=== PATIENT | male | born 1975 | race Caucasian/White ===

== ENCOUNTER → 2017-07-15 09:15 | Outpatient (CLI) | payer BC, OTHER, MEDICAID, SELFPAY ==
--- NOTE | 2017-07-15 | DI.CT.S_ITS ---
PROCEDURE: CT CHEST WO CON INDICATIONS: SOLITARY PULMONARY NODULE TECHNIQUE: Noncontrast 5 mm thick sections acquired from the pulmonary apices to the posterior costophrenic angles. 7 mm thick coronal and sagittal MIP reformats were then acquired. For radiation dose reduction, the following was used: automated exposure control, adjustment of mA and/or kV according to patient size. COMPARISON: [facility], CT, ABDOMEN/PELVIS WITH CONTRAST, 05/30/2015, 8:40. FINDINGS: Image quality: Excellent. Lungs and pleura: There is again seen a right lower lobe pulmonary soft tissue nodule that today measures 6 mm in greatest axial dimension, as on series 3 image 36. This is not significantly changed compared to the prior CT dated 05/30/15. No new pulmonary nodules can be seen. No areas of acute lung consolidation are seen. No pneumothorax or pleural effusions are seen. The central airways are patent. Mediastinum: Heart size is normal. No pericardial effusion. No mediastinal adenopathy by size criteria. Thoracic aorta and central pulmonary arteries are normal in size. Incidental note is made of an aberrant right subclavian artery, which passes posterior to the esophagus and anterior to the vertebral bodies. Esophagus is normal in caliber. No hiatal hernia. Bones and chest wall: No suspicious bony lesions. No vertebral body compression fractures. No axillary or supraclavicular adenopathy by size criteria. Thyroid gland demonstrates no significant noncontrast abnormality. Abdomen: Visualized upper abdominal solid organs and bowel loops appear normal in the absence of contrast. IMPRESSION: Stable 6 mm right lower lobe pulmonary nodule. Given the stability since 2016, this is considered to be benign. No further imaging workup is recommended, although attention should be paid to this nodule on any future followup studies. Incidental note is made of: Aberrant right subclavian artery. Dictated by: Robby Caldera M.D. on 07/15/2017 at 8:59 Approved by: Robby Caldera M.D. on 07/15/2017 at 9:03
[2017-07-15 11:34] LABS: Alanine Aminotransferase 165 IU/L (21-72); Albumin 4.7 g/dL (3.5-5.0); Albumin Globulin Ratio 1.4 (1.0-2.8); Alkaline Phosphatase 114 U/L (38-126); Aspartate Aminotransferase 159 IU/L (17-59); BUN Creatinine Ratio 7.5 (6-22); Bilirubin Total 1.8 mg/dL (0.2-1.3); Calcium 9.4 mg/dL (8.4-10.2); Estimated Glomerular Filt Rate > 60.0 mL/min (>60); Gamma Glutamyl Transpeptidase 1101 U/L (15-73); Globulin 3.4 g/dL (1.7-4.1); Glucose 117 mg/dL (70-100); HDL Cholesterol 61 mg/dL (40-60); Potassium 3.2 mmol/L (3.4-5.1); Sodium 138 mmol/L (137-145); Total Protein 8.1 g/dL (6.3-8.2); Triglycerides 435 mg/dL (35-150)
[2017-07-15 11:39] LABS: HEMOLYSIS 19 (0-50)
[2017-07-15 12:09] LABS: Cholesterol 393 mg/dL (140-199)
[2017-07-15 12:58] LABS: TSH w/ Reflex to FT4 4.15 uIU/mL (0.47-4.68)
== END ==
PROVIDERS: PCP Family Medicine; Visit Provider Family Medicine
DX: R91.1 Solitary pulmonary nodule (principal); E78.5 Hyperlipidemia, unspecified; I10 Essential (primary) hypertension; E03.9 Hypothyroidism, unspecified; E87.1 Hypo-osmolality and hyponatremia; R79.89 Other specified abnormal findings of blood chemistry
CPT/HCPCS: 36415; 71250; 80053; 80061; 82977; 84443

== ENCOUNTER → 2017-08-17 09:30 | Outpatient (CLI) | payer BC, OTHER, MEDICAID, SELFPAY ==
--- NOTE | 2017-08-17 09:33 | DI.US.S_ITS ---
PROCEDURE: US ABDOMEN COMPLETE INDICATIONS: elevated liver function TECHNIQUE: Real-time scanning was performed of the abdominal and retroperitoneal organs, with image documentation. COMPARISON: [facility], US, ABDOMEN COMPLETE, 12/02/2016, 8:02. [facility], CT, ABDOMEN/PELVIS WITH CONTRAST, 05/30/2015, 8:40. FINDINGS: Liver: The liver is normal in size and demonstrates slightly increased echogenicity. This appearance is less prominent on the current study, compared to the previous study. No focal liver lesions are evident. Gallbladder: The gallbladder is within normal limits. There is no cholelithiasis. Biliary ducts: Intrahepatic bile ducts are non-dilated. Extrahepatic bile duct caliber measures 6 mm. Normal is 6-7 mm or less in diameter, or 10 mm or less post-cholecystectomy. Pancreas: Visualized portions of the pancreas are sonographically normal. Spleen: Spleen is normal in size and homogeneous in echotexture. Kidneys: Kidneys are normal in size and echotexture. Right kidney measures 10.3 cm long; left kidney measures 12.1 cm long. No hydronephrosis or shadowing nephrolithiasis. No solid masses. Aorta: Visualized aorta is normal in caliber at less than 3 cm. Iliacs: Proximal common iliac arteries are normal in caliber at less than 2.5 cm. IVC: Intrahepatic inferior vena cava is patent. Miscellaneous: No free abdominal fluid. IMPRESSION: 1. No cholelithiasis or evidence of acute cholecystitis. 2. Nonspecific increased echogenicity of the liver is most often seen in the setting of hepatic steatosis. This appearance is less prominent on the current study, compared to the previous exam. Dictated by: Dom Cadena M.D. on 08/17/2017 at 9:23 Approved by: Dom Cadena M.D. on 08/17/2017 at 9:38
== END ==
PROVIDERS: PCP Family Medicine; Visit Provider Family Medicine
DX: R79.89 Other specified abnormal findings of blood chemistry (principal)
CPT/HCPCS: 76700

== ENCOUNTER → 2020-01-03 07:14 | Outpatient (CLI) | payer BC, SELFPAY ==
[2020-01-03 08:50] LABS: Add Manual Diff / Slide Review NO; Basophils Absolute Auto 0 /uL (0-100); Basophils Percent Auto 0.4 % (0-2); Eosinophils Absolute Auto 0 /uL (0-450); Eosinophils Percent Auto 0.8 % (2-4); Hematocrit 46.2 % (41-53); Lymphocytes Absolute Auto 1400 /uL (1100-4500); Mean Corpuscular HGB Conc 34.7 % (30-36); Mean Corpuscular Hemoglobin 33.8 PG (26-34); Mean Corpuscular Volume 97.7 fL (80-100); Monocytes Absolute Auto 600 /uL (0-900); Monocytes Percent Auto 11.8 % (3-14); Neutrophils Absolute Auto 3300 /uL (1500-7000); Platelet Count 154 X10^3/uL (150-400); Red Blood Cell Count 4.73 X10^6/uL (4.5-5.9); Red Cell Distribution Width 13.4 % (11.6-14.8); White Blood Cell Count 5.4 X10^3/uL (4.5-11.0)
[2020-01-03 09:28] LABS: Alanine Aminotransferase 69 IU/L (<50); Albumin 4.7 g/dL (3.5-5.0); Albumin Globulin Ratio 1.3 (1.0-2.8); Alkaline Phosphatase 70 U/L (38-126); Aspartate Aminotransferase 72 IU/L (17-59); BUN Creatinine Ratio 13.8 (6-22); Bilirubin Total 1.7 mg/dL (0.2-1.3); Blood Urea Nitrogen 8 mg/dL (9-20); Calcium 9.4 mg/dL (8.4-10.2); Carbon Dioxide 30 mmol/L (22-32); Chloride 99 mmol/L (98-107); Estimated Glomerular Filt Rate > 60.0 mL/min (>60); Globulin 3.6 g/dL (1.7-4.1); Glucose 97 mg/dL (70-100); HDL Cholesterol 59 mg/dL (40-60); HEMOLYSIS < 15 (0-50); Potassium 3.4 mmol/L (3.4-5.1); Sodium 136 mmol/L (137-145); Total Protein 8.3 g/dL (6.3-8.2); Triglycerides 185 mg/dL (35-150)
[2020-01-03 09:42] LABS: Cholesterol 346 mg/dL (140-199); LDL Cholesterol Calculated 250 mg/dL (<100)
[2020-01-03 17:16] LABS: Creatinine Urine Random 175.5 mg/dL
[2020-01-03 17:20] LABS: Microalbumi Creatinin Ratio Ur 4.5 ug/mg CR (<30); Microalbumin Urine Random 0.8 mg/dL (0-1.6)
== END ==
PROVIDERS: PCP Family Medicine; Referring Provider Family Medicine; Visit Provider Family Medicine
DX: E03.9 Hypothyroidism, unspecified (principal); E78.1 Pure hyperglyceridemia; E78.5 Hyperlipidemia, unspecified; I10 Essential (primary) hypertension; R79.89 Other specified abnormal findings of blood chemistry
CPT/HCPCS: 36415; 80053; 80061; 82043; 82570; 85025

== ENCOUNTER → 2020-01-04 15:43 | Outpatient (CLI) | payer BC, SELFPAY ==
[2020-01-04 17:27] LABS: TSH w/ Reflex to FT4 5.91 uIU/mL (0.47-4.68)
[2020-01-04 17:53] LABS: Free T4, Direct Thyroxine 1.15 ng/dL (0.78-2.19)
== END ==
PROVIDERS: PCP Family Medicine; Visit Provider Family Medicine
DX: E03.9 Hypothyroidism, unspecified (principal)
CPT/HCPCS: 84439; 84443

== ENCOUNTER → 2020-06-19 09:46 | Outpatient (CLI) | payer OTHER, SELFPAY ==
[2020-06-19] MEDS: COVID-19 VACC, Ad26(JANSSEN)/PF 0.5 ML IM (09:56)
== END ==
PROVIDERS: PCP Family Medicine; Visit Provider Internal Medicine
DX: Z23 Encounter for immunization (principal)
CPT/HCPCS: 0031A; 91303

== ENCOUNTER 2020-07-23 14:23 | Emergency (ER) | payer OTHER, MEDICAID, SELFPAY ==
[2020-07-23] VITALS (10 sets, daily range): BP systolic 125–163; BP diastolic 77–104; PULSE 109–144; RESP 12–32; TEMP 36.8; O2SAT 94–99
--- NOTE | 2020-07-23 14:33 | DI.RAD.S_ITS ---
PROCEDURE: XR KNEE LT 3V INDICATIONS: PAIN, SWELLING AND BRUISING STATUS POST FALL TECHNIQUE: 3 views of the knee were acquired. COMPARISON: None. FINDINGS: Bones: No fractures or dislocations. No suspicious bony lesions. Soft tissues: No joint effusion. Subcutaneous soft tissue thickening from the infrapatellar region through the anterior tibial tubercle. No radiodense foreign body. No suspicious soft tissue calcifications. IMPRESSION: Subcutaneous soft tissue swelling in the infrapatellar region anteriorly suggests contusion or cellulitis without underlying fracture or foreign body. Dictated by: Jennifer Rodríguez M.D. on 07/23/2020 at 15:33 Approved by: Jennifer Rodríguez M.D. on 07/23/2020 at 15:35
[2020-07-23] MEDS: SODIUM CHLORIDE 0.9% 1,000 ML 1000 ML IV (14:58)
[2020-07-23] MEDS: TET,DIPH,PERTUSS(ACELL),VAC/PF 0.5 ML SYRINGE IM (14:59)
[2020-07-23] MEDS: THIAMINE 200 MG in SODIUM CHLORIDE 0.9% 50 ML 208 ML IV (14:59)
[2020-07-23 15:00] LABS: Add Manual Diff / Slide Review NO; Basophils Absolute Auto 0 /uL (0-100); Basophils Percent Auto 0.2 % (0-2); Eosinophils Absolute Auto 0 /uL (0-450); Hematocrit 41.1 % (41-53); Hemoglobin 14.3 g/dL (13.5-17.5); Lymphocytes Absolute Auto 900 /uL (1100-4500); Lymphocytes Percent Auto 8.1 % (25-40); Mean Corpuscular HGB Conc 34.9 % (30-36); Mean Corpuscular Hemoglobin 33.7 PG (26-34); Mean Corpuscular Volume 96.7 fL (80-100); Monocytes Absolute Auto 900 /uL (0-900); Monocytes Percent Auto 7.4 % (3-14); Neutrophils Absolute Auto 9700 /uL (1500-7000); Neutrophils Percent Auto 84.3 % (50-75); Platelet Count 82 X10^3/uL (150-400); Red Blood Cell Count 4.25 X10^6/uL (4.5-5.9); Red Cell Distribution Width 14.5 % (11.6-14.8); White Blood Cell Count 11.6 X10^3/uL (4.5-11.0)
[2020-07-23] MEDS: ONDANSETRON 4 MG/2 ML INJ IV (15:00)
[2020-07-23] MEDS: PHENobarbital 65 MG/ML VIAL 260 MG IV (15:01)
[2020-07-23 15:21] LABS: Alanine Aminotransferase 53 IU/L (<50); Albumin Globulin Ratio 1.5 (1.0-2.8); Alkaline Phosphatase 97 U/L (38-126); Aspartate Aminotransferase 104 IU/L (17-59); BUN Creatinine Ratio 11.7 (6-22); Bilirubin Total 1.9 mg/dL (0.2-1.3); Blood Urea Nitrogen 11 mg/dL (9-20); Calcium 10.4 mg/dL (8.4-10.2); Carbon Dioxide 23 mmol/L (22-32); Chloride 93 mmol/L (98-107); Creatine Kinase 93 U/L (55-170); Estimated Glomerular Filt Rate > 60.0 mL/min (>60); Globulin 3.3 g/dL (1.7-4.1); Glucose 135 mg/dL (70-100); HEMOLYSIS < 15 (0-50); Potassium 2.8 mmol/L (3.4-5.1); Sodium 133 mmol/L (137-145); Total Protein 8.3 g/dL (6.3-8.2)
[2020-07-23 15:31] LABS: NT-proBNP (BNP-Adult 18+) 217 pg/mL (<125)
[2020-07-23] MEDS: MAGNESIUM SULFATE 2 GM/50 ML PIGGYBACK IV (16:22)
[2020-07-23] MEDS: POTASSIUM CHLORIDE IN WATER 10 MEQ/100 ML PIGGYBACK 100 MEQ IV (16:49)
--- NOTE | 2020-07-23 19:01 | ED_ITS ---
HPI - Alcohol General Chief Complaint: Toxicology Problem Stated Complaint: knees scrapped and injured Time Seen by Provider: 07/23/20 14:25 Source: patient Mode of arrival: Wheelchair Limitations: no limitations History of Present Illness HPI narrative: A 44-year-old male nonsmoker and heavy drinker presents with his for evaluation of a ground level fall with abrasions of his anterior knees. He presents in a wheelchair in complains that he has actually fallen 3 times today and when asked further he states because his legs do not seem to work and he is unsteady. He denies any head neck or back pain. He denies other injuries other than his knees as a consequence of the fall. It turns out the patient normally drinks at least 5 glasses of wine per day and decided to quit cold turkey 2 days ago. He has never gone through alcohol withdrawal before and has never had seizures. He denies any history of rehab. He has had no fever or chills. Denies any numbness, tingling or weakness. He has a mild headache and feels a bit anxious. He denies any chest pain but does have a racing heart. He is a bit sweaty. He denies any auditory or visual hallucinations. He denies any tactile hallucinations. He is nauseated but denies any vomiting and states he actually just has a poor appetite MD complaint: alcohol withdrawal Last drink: days (ago) Chronic alcohol use: Yes Previous visits for alcohol intoxication: No Recent trauma: Yes Treatments prior to arrival: none Related Data Previous Rx's Medication Instructions Recorded chlordiazepoxide HCl 25 mg PO Q12H #32 cap 07/23/20 potassium chloride 20 meq PO BID #14 tab 07/23/20 Allergies Allergy/AdvReac Type Severity Reaction Status Date / Time No Known Drug Allergies Allergy Verified 07/23/20 14:40 Review of Systems Constitutional Constitutional: Denies chills, Denies fatigue, Denies fever(s), Denies frequent falls, Denies lethargy and Denies weakness Eyes Eyes: Denies change in vision, Denies eye discharge, Denies irritation and Denies loss of vision ENT Ears, Nose, Mouth, and Throat: Denies change in voice, Denies dizziness, Denies neck pain, Denies sore throat and Denies throat swelling Cardiovascular Cardiovascular: Denies chest pain, Reports irregular heart rhythm, Denies lightheadedness, Reports palpitations, Denies dyspnea, Denies dyspnea on exertion and Denies orthopnea Respiratory Respiratory: Denies cough, Denies dyspnea, Denies dyspnea on exertion and Denies wheezing Gastrointestinal Gastrointestinal: Denies abdominal pain, Denies change in bowel habits, Denies diarrhea, Denies nausea and Denies vomiting Musculoskeletal Musculoskeletal: Reports joint swelling, Reports limited range of motion, Denies neck pain and Denies numbness Integumentary/Breasts Skin/Breast: Denies pruritus, Reports erythema, Denies rash, Reports skin pain, Reports skin swelling and Reports wounds Neurologic Neurologic: Denies behavioral changes, Denies confusion, Denies dizziness, Denies frequent falls, Denies loss of vision, Denies numbness and Denies weakne ss Psychiatric Psychiatric: Reports anxiety, Denies behavioral changes, Denies confusion, Denies depression, Denies homicidal ideation and Denies suicidal ideation Endocrine Endocrine: Denies fatigue, Denies flushing and Reports palpitations Hematologic/Lymphatic Hematologic/Lymphatic: Denies easy bruising Allergic/Immunologic Allergic/Immunologic: Denies urticaria, Denies throat swelling and Denies wheezing Patient History Social History Smoking Status: Never smoker Smoking Status: Never smoker alcohol intake frequency: 3 or more drinks per day Substance Use Type: does not use Exam Narrative Exam Narrative: GENERAL: [44] year old patient appears stated age. Thin, in distress, mild resting tremors, diaphoresis and some agitation HEAD: Atraumatic. Normocephalic. EYES: Pupils equal round and reactive. Extraocular motions intact. No scleral icterus. No injection or drainage. ENT: Nose without bleeding, purulent drainage. Throat without erythema, tonsillar hypertrophy or exudate. Airway patent. NECK: Trachea midline. Non tender CARDIOVASCULAR: Tachycardic but regular rhythm without murmurs, gallops, or rubs. RESPIRATORY: Clear to auscultation. Breath sounds equal bilaterally. No wheezes, rales, or rhonchi. GASTROINTESTINAL: Abdomen soft, non-tender, nondistended. EXTREMITIES: No edema or joint tenderness. BACK: Nontender without deformity or crepitance. No flank tenderness. NEURO: AOx3. Mild resting tremor with arms extended SKIN: No rash or erythema of visible areas mild diaphoresis Initial Vital Signs Initial Vital Signs: Vital Signs Temperature 98.3 F 07/23/20 14:37 Pulse Rate 144 H 07/23/20 14:37 Respiratory Rate 18 07/23/20 14:37 Blood Pressure 163/104 H 07/23/20 14:37 Pulse Oximetry 97 07/23/20 14:37 Course Course Course Narrative: Patient does demonstrate improvement after thiamine and phenobarb. Patient was flipped for admission early and had been visit at the bedside by the hospitalist as he is clearly at high risk for rapid deterioration and requires a monitored setting and replacement of electrolytes. Patient is admittedly terrified of hospitals and has had bad experiences and multiple occurrences in his life. He is of sound mind and judgment and demonstrates the capacity to make his own decisions. We have had lengthy discussions at the bedside with both myself and hospitalist about our desire to admit the patient, high likelihood of possible bad outcome ranging anywhere from seizures to permanent disability or even and cardiac arrest. The patient is apologetic about his decision but refuses to stay in the hospital. I did offer to speak with family members including his as well as his primary care provider and he would be happy with me to talk to anybody. His presents to the bedside and we have essentially the same lengthy conversation and it becomes clear that the patient will not come into the hospital. He states that he will come back if things get worse. Orders Ordered: ED Orders 07/23/20 14:33 XR knee LT 3V Stat EKG-12 Lead Stat 07/23/20 14:43 Complete Blood Count AUTO DIFF Stat Comprehensive Metabolic Panel Stat Magnesium Stat NT-proBNP (BNP-Adult 18+) Stat Troponin & CK Cardiac Panel Stat Discontinued Medications Diphtheria/Tetanus/Acell Pertussis (Tet,Diph,Pertuss(Acell),Vac/Pf 0.5 Ml Syringe) 0.5 ml IM .ONCE ONE Stop: 07/23/20 14:34 Last Admin: 07/23/20 14:59 Dose: 0.5 ml Documented by: ADRYAN Sodium Chloride (Normal Saline 0.9%) 1,000 mls @ 1,000 mls/hr IV BOLUS ONE Stop: 07/23/20 15:32 Last Infusion: 07/23/20 18:01 Dose: 0 mls/hr Documented by: Admin: 07/23/20 14:58 Dose: 1,000 mls/hr Documented by: ADRYAN Thiamine HCl 200 mg/ Sodium (Chloride) 52 mls @ 208 mls/hr IV NOW ONE Stop: 07/23/20 14:34 Last Infusion: 07/23/20 15:43 Dose: 0 mls/hr Documented by: Infusion: 07/23/20 15:29 Dose: 208 mls/hr Documented by: Infusion: 07/23/20 15:00 Dose: 0 mls/hr Documented by: Admin: 07/23/20 14:59 Dose: 208 mls/hr Documented by: ADRYAN Magnesium Sulfate (Magnesium Sulfate) 2 gm in 50 mls @ 150 mls/hr IV NOW ONE Stop: 07/23/20 16:33 Last Infusion: 07/23/20 16:51 Dose: 0 mls/hr Documented by: ADRYAN Cosigned by: MK Admin: 07/23/20 16:22 Dose: 150 mls/hr Documented by: ADRYAN Cosigned by: MK POTASSIUM CHLORIDE IN WATER (Potassium Cl 10 Meq/100 Ml Leigha) 10 meq in 100 mls @ 100 mls/hr IV Q1H MARKY Stop: 07/23/20 20:13 Last Admin: 07/23/20 18:02 Dose: Not Given Documented by: Admin: 07/23/20 18:02 Dose: Not Given Documented by: Infusion: 07/23/20 17:46 Dose: 0 mls/hr Documented by: Admin: 07/23/20 16:49 Dose: 100 mls/hr Documented by: ADRYAN Ondansetron HCl (Ondansetron 4 Mg/2 Ml Inj) 4 mg IV Q4HR PRN PRN Reason: Nausea And Vomiting Last Admin: 07/23/20 15:00 Dose: 4 mg Documented by: ADRYAN Phenobarbital (Phenobarbital 65 Mg/Ml Vial) 260 mg IV NOW ONE Stop: 07/23/20 14:34 Last Admin: 07/23/20 15:01 Dose: 260 mg Documented by: ADRYAN Vital Signs Vital signs: Vital Signs - 8 hr 07/23/20 14:37 07/23/20 14:45 07/23/20 14:48 Temperature 98.3 F Pulse Rate 144 H 129 H Respiratory Rate 18 17 Blood Pressure 163/104 H 162/77 H Pulse Oximetry 97 96 95 07/23/20 15:00 07/23/20 15:30 07/23/20 16:00 Temperature Pulse Rate 126 H 118 H 120 H Respiratory Rate 16 18 12 Blood Pressure 150/88 H 125/83 138/87 Pulse Oximetry 94 95 99 07/23/20 16:30 07/23/20 16:37 07/23/20 17:00 Temperature Pulse Rate 114 H 112 H 110 H Respiratory Rate 24 26 H 32 H Blood Pressure 136/89 136/89 131/92 H Pulse Oximetry 99 97 98 07/23/20 17:30 Temperature Pulse Rate 109 H Respiratory Rate 21 Blood Pressure 142/87 H Pulse Oximetry 98 MDM - Alcohol Lab Data Result diagrams: 07/23/20 14:43 07/23/20 14:43 Labs: Lab Results 07/23/20 07/23/20 Range/Units 14:43 14:43 WBC 11.6 H (4.5-11.0) X10^3/uL RBC 4.25 L (4.5-5.9) X10^6/uL Hgb 14.3 (13.5-17.5) g/dL Hct 41.1 (41-53) % MCV 96.7 (80-100) fL MCH 33.7 (26-34) PG MCHC 34.9 (30-36) % RDW 14.5 (11.6-14.8) % Plt Count 82 L (150-400) X10^3/uL Neut % (Auto) 84.3 H (50-75) % Lymph % (Auto) 8.1 L (25-40) % Pershing % (Auto) 7.4 (3-14) % Eos % (Auto) 0.0 L (2-4) % Baso % (Auto) 0.2 (0-2) % Neut # (Auto) 9700 H (4031-1902) /uL Lymph # (Auto) 900 L (2758-5214) /uL Pershing # (Auto) 900 (0-900) /uL Eos # (Auto) 0 (0-450) /uL Baso # (Auto) 0 (0-100) /uL Sodium 133 L (137-145) mmol/L Potassium 2.8 L (3.4-5.1) mmol/L Chloride 93 L (98-107) mmol/L Carbon Dioxide 23 (22-32) mmol/L BUN 11 (9-20) mg/dL Creatinine 0.94 (0.66-1.25) mg/dL Estimated GFR > 60.0 (>60) mL/min BUN/Creatinine Ratio 11.7 (6-22) Glucose 135 H (70-100) mg/dL Calcium 10.4 H (8.4-10.2) mg/dL Magnesium 1.0 L (1.6-2.3) mg/dL Total Bilirubin 1.9 H (0.2-1.3) mg/dL AST 104 H (17-59) IU/L ALT 53 H (<50) IU/L Alkaline Phosphatase 97 (38-126) U/L Total Creatine Kinase 93 (55-170) U/L CK-MB (CK-2) TNP CK-MB (CK-2) Rel Index TNP Troponin I 0.040 H (0.01-0.034) ng/mL NT-Pro-B Natriuret Pep 217 H (<125) pg/mL Total Protein 8.3 H (6.3-8.2) g/dL Albumin 5.0 (3.5-5.0) g/dL Globulin 3.3 (1.7-4.1) g/dL Albumin/Globulin Ratio 1.5 (1.0-2.8) Discharge Plan Departure Patient Disposition: Left Against Medical Advice Clinical Impression: Magnesium deficiency, Decreased potassium in the blood Alcohol withdrawal syndrome Qualifiers: Complication of substance-induced condition: with unspecified complication Qualified Code(s): F10.239 - Alcohol dependence with withdrawal, unspecified Instructions: DI for Drug or Alcohol Withdrawal Activity Restrictions/Additional Instructions: *You have been diagnosed with [acute alcohol withdrawal syndrome with associated electrolyte abnormalities including low potassium and magnesium. As we discussed each of these diagnoses are potentially a life-threatening and could lead to seizures, heart attacks, cardiac arrest and permanent disability. I have included prescriptions which will help you treat these diagnoses as an outpatient but please feel free to return immediately for any change of heart.] *What to do: *Please continue to take your regular medications as directed. Have included a prescription for potassium, however it can be foul tasting. It may be easier to consider eating a diet of foods high in potassium such as bananas, oranges, spinach, broccoli, potatoes, mushrooms and others. [x ] New medication prescriptions sent to your pharmacy: [[facility] ] [ ] New medication written as a paper prescription [ ] No new medications given *Please follow up with your primary care provider in 2-3 days, call for an appointment. Let them know you were seen in the Emergency Department and that we ask that you be seen in follow up. We will electronically transmit a record of today's note if your PCP is in our system *If you do not have a primary care provider please contact the [facility] Resource line at [phone]. They will ask some questions about your medical history and help get you set up with a doctor in the community. *Return to Emergency Department if you should have any new, worsening or concerning symptoms, such as [fever greater than 101 F, shaking chills, worsening pain, persistent vomiting or other bothersome symptoms] Prescriptions: New chlordiazepoxide HCl 25 mg capsule 25 mg PO Q12H Qty: 32 RF: 0 potassium chloride 20 mEq tablet extended release 20 meq PO BID Qty: 14 RF: 0 Stand Alone Forms: Against Medical Advice
== END 2020-07-23 18:00 | disposition left against medical advice (07) ==
PROVIDERS: Emergency Provider Emergency Medicine
DX: E87.6 Hypokalemia (principal); E61.2 Magnesium deficiency; F10.239 Alcohol dependence with withdrawal, unspecified; R00.2 Palpitations; F41.9 Anxiety disorder, unspecified; Z23 Encounter for immunization
CPT/HCPCS: 36415; 73562; 80053; 82550; 83735; 83880; 84484; 85025; 90471; 93005; 93010; 96361; 96365; 96375; 99284; 90715; J2405; J2560; J3475

== ENCOUNTER → 2020-09-22 13:12 | Outpatient (CLI) | payer OTHER, SELFPAY ==
[2020-09-22 13:57] LABS: Add Manual Diff / Slide Review NO; Basophils Absolute Auto 0 /uL (0-100); Basophils Percent Auto 0.5 % (0-2); Eosinophils Absolute Auto 0 /uL (0-450); Eosinophils Percent Auto 0.4 % (2-4); Hematocrit 48.6 % (41-53); Hemoglobin 16.8 g/dL (13.5-17.5); Lymphocytes Absolute Auto 1100 /uL (1100-4500); Lymphocytes Percent Auto 15.2 % (25-40); Mean Corpuscular HGB Conc 34.6 % (30-36); Mean Corpuscular Volume 95.4 fL (80-100); Monocytes Absolute Auto 500 /uL (0-900); Monocytes Percent Auto 7.5 % (3-14); Neutrophils Absolute Auto 5500 /uL (1500-7000); Neutrophils Percent Auto 76.4 % (50-75); Platelet Count 126 X10^3/uL (150-400); Red Blood Cell Count 5.09 X10^6/uL (4.5-5.9); Red Cell Distribution Width 13.2 % (11.6-14.8); White Blood Cell Count 7.2 X10^3/uL (4.5-11.0)
[2020-09-22 14:32] LABS: Alanine Aminotransferase 26 IU/L (<50); Albumin Globulin Ratio 1.3 (1.0-2.8); Alkaline Phosphatase 79 U/L (38-126); Aspartate Aminotransferase 50 IU/L (17-59); BUN Creatinine Ratio 16.1 (6-22); Bilirubin Total 2.7 mg/dL (0.2-1.3); Blood Urea Nitrogen 9 mg/dL (9-20); Calcium 10.3 mg/dL (8.4-10.2); Carbon Dioxide 26 mmol/L (22-32); Chloride 96 mmol/L (98-107); Cholesterol 267 mg/dL (140-199); Estimated Glomerular Filt Rate > 60.0 mL/min (>60); Gamma Glutamyl Transpeptidase 231 U/L (15-73); Globulin 3.8 g/dL (1.7-4.1); Glucose 118 mg/dL (70-100); HDL Cholesterol 73 mg/dL (40-60); HEMOLYSIS < 15 (0-50); LDL Cholesterol Calculated 138 mg/dL (<100); Potassium 3.5 mmol/L (3.4-5.1); Sodium 134 mmol/L (137-145); Total Protein 8.8 g/dL (6.3-8.2); Triglycerides 280 mg/dL (35-150)
[2020-09-22 14:59] LABS: TSH w/ Reflex to FT4 4.78 uIU/mL (0.47-4.68)
[2020-09-22 16:04] LABS: Free T4, Direct Thyroxine 0.91 ng/dL (0.78-2.19)
--- NOTE | 2020-09-22 16:24 | DI.RAD.S_ITS ---
PROCEDURE: XR WRIST LT MIN 3V INDICATIONS: left wrist worsening pain and swelling TECHNIQUE: 4 views of the wrist were acquired. COMPARISON: None. FINDINGS: Bones: No fractures or dislocations. No suspicious bony lesions. Scaphoid view: No fracture Soft tissues: No suspicious soft tissue calcifications. Normal degenerative in the wrist. No erosions or evidence of inflammatory arthropathy. IMPRESSION: 1. No acute abnormality of the left wrist. 2. Minimal degenerative changes. 3. No evidence of inflammatory arthropathy in the left wrist. Dictated by: Reno Johns M.D. on 09/22/2020 at 17:59 Approved by: Reno Johns M.D. on 09/22/2020 at 18:29
== END ==
PROVIDERS: PCP Family Medicine; Referring Provider Family Medicine; Visit Provider Family Medicine
DX: E03.9 Hypothyroidism, unspecified (principal); E78.1 Pure hyperglyceridemia; E78.5 Hyperlipidemia, unspecified; I10 Essential (primary) hypertension; K76.0 Fatty (change of) liver, not elsewhere classified; R79.89 Other specified abnormal findings of blood chemistry
CPT/HCPCS: 36415; 73110; 80053; 80061; 82977; 84439; 84443; 85025

== ENCOUNTER → 2020-12-08 07:54 | Outpatient (CLI) | payer OTHER, SELFPAY ==
[2020-12-08 08:55] LABS: Alanine Aminotransferase 43 IU/L (<50); Albumin 4.8 g/dL (3.5-5.0); Albumin Globulin Ratio 1.2 (1.0-2.8); Alkaline Phosphatase 73 U/L (38-126); Aspartate Aminotransferase 85 IU/L (17-59); BUN Creatinine Ratio 9.4 (6-22); Bilirubin Total 1.4 mg/dL (0.2-1.3); Blood Urea Nitrogen 5 mg/dL (9-20); Calcium 9.9 mg/dL (8.4-10.2); Carbon Dioxide 29 mmol/L (22-32); Chloride 101 mmol/L (98-107); Cholesterol 206 mg/dL (140-199); Estimated Glomerular Filt Rate > 60.0 mL/min (>60); Glucose 105 mg/dL (70-100); HDL Cholesterol 70 mg/dL (40-60); LDL Cholesterol Calculated 109 mg/dL (<100); Sodium 136 mmol/L (137-145); Total Protein 8.8 g/dL (6.3-8.2); Triglycerides 135 mg/dL (35-150)
[2020-12-08 09:00] LABS: HEMOLYSIS 88 (0-50); Potassium 5.5 mmol/L (3.4-5.1)
[2020-12-08 09:28] LABS: TSH w/ Reflex to FT4 3.44 uIU/mL (0.47-4.68)
== END ==
PROVIDERS: PCP Family Medicine; Referring Provider Family Medicine; Visit Provider Family Medicine
DX: E78.1 Pure hyperglyceridemia (principal); K76.0 Fatty (change of) liver, not elsewhere classified
CPT/HCPCS: 36415; 80053; 80061; 84443

== ENCOUNTER 2021-06-03 11:14 | Emergency (ER) | payer OTHER, SELFPAY ==
[2021-06-03] VITALS (11 sets, daily range): BP systolic 128–147; BP diastolic 79–102; PULSE 78–102; RESP 12–24; TEMP 36.3; O2SAT 96–99; BMI 22.7
--- NOTE | 2021-06-03 11:40 | DI.CT.S_ITS ---
PROCEDURE: CT HEAD/BRAIN WO CON INDICATIONS: Fall and intoxicated TECHNIQUE: Noncontrast 4.5 mm thick angled axial sections acquired from the foramen magnum to the vertex, with coronal and sagittal reformats. For radiation dose reduction, the following was used: automated exposure control, adjustment of mA and/or kV according to patient size. COMPARISON: None. FINDINGS: Image quality: Excellent. CSF spaces: Basal cisterns are patent. No extra-axial fluid collections. Ventricles are normal in size and shape. Brain: No midline shift. No intracranial masses or hemorrhage. Mcqueen-white matter interface is normal. Skull and face: Calvarium and visualized facial bones are intact, without suspicious lesions. Sinuses: Visualized sinuses and mastoids are clear. IMPRESSION: No acute intracranial hemorrhage is seen. No acute intracranial process is seen. Dictated by: Robby Caldera M.D. on 06/03/2021 at 10:55 Approved by: Robby Caldera M.D. on 06/03/2021 at 10:55
--- NOTE | 2021-06-03 11:42 | DI.CT.S_ITS ---
PROCEDURE: CT CERVICAL SPINE WO CON INDICATIONS: Fall and intoxicated TECHNIQUE: Noncontrast 3 mm thick sections acquired from the skull base to the T4 level. Sagittal and coronal reformats were then constructed. For radiation dose reduction, the following was used: automated exposure control, adjustment of mA and/or kV according to patient size. COMPARISON: [facility], CERVICAL SPINE 2 OR 3 VIEWS, 03/11/2017, 15:49. [facility], CT, CT HEAD/BRAIN WO CON, 06/03/2021, 11:45. FINDINGS: Image quality: Excellent. Bones: No fractures or dislocations. Fusion of C4-C5. Degenerative disc and facet disease in cervical spine. Visualized superior ribs are intact. Soft tissues: Prevertebral soft tissues are normal in thickness. No paravertebral hematomas. No apical pneumothoraces. IMPRESSION: No fracture in cervical spine. Dictated by: Katelyn Medina M.D. on 06/03/2021 at 12:04 Approved by: Katelyn Medina M.D. on 06/03/2021 at 12:15
--- NOTE | 2021-06-03 12:13 | ED_ITS ---
HPI - Fall <Rachael Roper [facility] - Last Filed: 06/03/21 13:55> General Chief Complaint: Fall Stated Complaint: GLF Time Seen by Provider: 06/03/21 11:39 Source: EMS Mode of arrival: EMS History of Present Illness HPI Narrative: [age] year old male presents to the emergency department by EMS after a ground level fall into a cabinet this morning. Patient's states that he has been drinking more than 1 bottle of wine each day for the last 6 days since his mother . Patient's states that he has had slurred speech, was unable to get up this morning, and he called EMS. Patient is alert and oriented to self, location, but not time. He denies seeking help for his drinking. Patient states he has been hospitalized for alcohol withdrawal in the past but denies ever having a seizure. Patient denies any pain currently, he denies any hallucinations-audio or visual, he denies any shortness of breath, chest pain, vomiting, neck pain, headache, nausea, or other complaint. Patient's states that patient had a loss of consciousness after he hit the cabinet for less than a minute but he continued breathing. This is why he called EMS. Patient has been acting like himself since he woke, but he has had slurred speech consistent with slurred speech over the last week. Patient states his last drink was last night. Patient endorses having chronic dental infection in his mouth. He has an appointment in 2 weeks to have his teeth removed. He states he drinks due to the pain in his mouth. His gums are red and painful, with obvious infection. Related Data Home Medications Medication Instructions Recorded Confirmed Fexofenadine Hydrochloride 0 mg PO * DOSE/FREQUENCY #0 12/01/09 12/08/20 (Melissa) triamcinolone acetonide 55 mcg 1 spray INTRANASAL DAILY 12/08/20 12/08/20 nasal spray aerosol (Nasacort) Previous Rx's Medication Instructions Recorded albuterol sulfate 90 mcg/actuation 2 puff INHALATION SEE INSTRUCTIONS 11/26/19 aerosol inhaler (Proventil HFA) PRN #1 inh atorvastatin 80 mg tablet 80 mg PO BEDTIME #90 tab 12/22/20 chlorhexidine gluconate 0.12 % 15 ml BUCCAL DAILY #118 ml 03/23/22 mouthwash clindamycin HCl 150 mg capsule 450 mg PO Q8H 7 Days #63 cap 06/03/21 Allergies Allergy/AdvReac Type Severity Reaction Status Date / Time No Known Drug Allergies Allergy Unverified 12/08/20 09:38 Review of Systems <EMETERIO Ivory - Last Filed: 06/03/21 13:55> Review of Systems Narrative: General: denies fever, chills, malaise, sweats, fatigue Head/Neck: denies headache, neck pain, dizziness Eyes: denies visual changes, eye pain Cardio: denies chest pain, palpitations, edema Respiratory: denies dyspnea, cough, orthopnea GI: denies abdominal pain, nausea, vomiting, or diarrhea : denies dysuria, hematuria, urinary retention, frequency or incontinence MSK: denies joint pain, muscle weakness Skin: denies rash, itching, skin lesions or other Neuro: denies numbness, tingling Patient History <EMETERIO Ivory - Last Filed: 06/03/21 13:55> Medical History Hepatic steatosis Hyperlipidemia Hypertension Impaired fasting glucose Incidental pulmonary nodule (10/15/16) Left wrist pain Surgical History History of tonsillectomy History of tympanostomy tube placement Status post biopsy (08/29/14) Family History Mother Fatty liver Social History Smoking Status: Never smoker Smoking Status: Never smoker alcohol intake frequency: 3 or more drinks per day Substance Use Type: does not use Exam <EMETERIO Ivory - Last Filed: 06/03/21 13:55> Narrative Exam Narrative: Independently reviewed vitals signs and nursing notes. General: cooperative, comfortable, in no acute distress, Head: atraumatic, symmetrical facial expressions Neck: supple, atraumatic, without lymphadenopathy. Eyes: pupils equal round and reactive, EOMI, conjunctiva normal Nose: nares patent, no rhinorrhea Mouth/Throat: uvula midline, moist mucus membranes Cardiovascular: regular rate and rhythm, no peripheral edema, warm extremities Respiratory: normal effort, able to speak in complete sentences, no audible wheezing, stridor, or rales. No retractions or tachypnea. GI: abdomen soft, nontender to palpation, nondistended, no masses, no exquisite tenderness with exam, without guarding or rebound. MSK: moves all extremities, ambulatory w/steady gait, neurovascularly intact, no weakness Skin: brisk capillary refill, no rash, no erythema Neuro: normal speech and cognition, A&O x3, normal tone Psych: mental status is grossly normal, congruent mood, normal affect, pleasant and cooperative Initial Vital Signs Initial Vital Signs: Vital Signs Temperature 97.4 F L 06/03/21 11:16 Pulse Rate 93 H 06/03/21 11:16 Respiratory Rate 18 06/03/21 11:16 Blood Pressure 147/102 H 06/03/21 11:16 <Jose Rafael Anthony DO - Last Filed: 06/03/21 15:52> Initial Vital Signs Initial Vital Signs: Vital Signs Temperature 97.4 F L 06/03/21 11:16 Pulse Rate 93 H 06/03/21 11:16 Respiratory Rate 18 06/03/21 11:16 Blood Pressure 147/102 H 06/03/21 11:16 Course <EMETERIO Ivory - Last Filed: 06/03/21 13:55> Orders Ordered: ED Orders 06/03/21 11:24 EKG-12 Lead Routine 06/03/21 11:34 CBC Auto Diff [Complete Blood Count AUTO DIFF] Stat CMP [Comprehensive Metabolic Panel] Stat Magnesium Stat Phosphorous Stat 06/03/21 11:40 CT head/brain wo con Stat 06/03/21 11:42 CT cervical spine wo con Stat Discontinued Medications Amoxicillin/Clavulanate Potassium (Amoxicillin/Clav 875/125 Mg) 1 tab PO NOW ONE Stop: 06/03/21 12:28 Last Admin: 06/03/21 12:50 Dose: Not Given Documented by: KISHOR Clindamycin HCl (Clindamycin 150 Mg Capsule) 300 mg PO NOW ONE Stop: 06/03/21 12:33 Last Admin: 06/03/21 12:50 Dose: Not Given Documented by: KISHOR Clindamycin HCl (Clindamycin 150 Mg Capsule) 450 mg PO NOW ONE Stop: 06/03/21 12:34 Last Admin: 06/03/21 12:36 Dose: 450 mg Documented by: KISHOR Sodium Chloride (Normal Saline 0.9%) 1,000 mls @ 1,000 mls/hr IV BOLUS ONE Stop: 06/03/21 13:10 Last Infusion: 06/03/21 13:18 Dose: 0 mls/hr Documented by: Admin: 06/03/21 12:17 Dose: 1,000 mls/hr Documented by: KISHOR Thiamine HCl 100 mg/ Sodium (Chloride) 101 mls @ 404 mls/hr IV NOW ONE Stop: 06/03/21 12:25 Last Infusion: 06/03/21 13:18 Dose: 0 mls/hr Documented by: Admin: 06/03/21 12:34 Dose: 404 mls/hr Documented by: KISHOR Lorazepam (Lorazepam 2 Mg/Ml Inj) 1 mg IV NOW ONE Stop: 06/03/21 12:25 Last Admin: 06/03/21 12:33 Dose: 0.5 mg Documented by: KISHOR Vital Signs Vital signs: Vital Signs - 8 hr 06/03/21 11:16 06/03/21 11:22 06/03/21 11:23 Temperature 97.4 F L Pulse Rate 93 H 86 Respiratory Rate 18 18 Blood Pressure 147/102 H 147/102 H Pulse Oximetry 98 06/03/21 11:30 06/03/21 11:51 06/03/21 12:00 Temperature Pulse Rate 86 87 83 Respiratory Rate 15 12 13 Blood Pressure 139/94 H 142/100 H 138/96 H Pulse Oximetry 99 98 06/03/21 12:30 06/03/21 12:41 06/03/21 13:00 Temperature Pulse Rate 102 H 91 H 82 Respiratory Rate 20 24 Blood Pressure 129/79 128/83 Pulse Oximetry 96 98 06/03/21 13:19 06/03/21 13:20 Temperature Pulse Rate 78 79 Respiratory Rate 17 Blood Pressure 131/86 131/86 Pulse Oximetry 98 97 <Jose Rafael Anthony DO - Last Filed: 06/03/21 15:52> Orders Ordered: ED Orders 06/03/21 11:24 EKG-12 Lead Routine 06/03/21 11:34 CBC Auto Diff [Complete Blood Count AUTO DIFF] Stat CMP [Comprehensive Metabolic Panel] Stat Magnesium Stat Phosphorous Stat 06/03/21 11:40 CT head/brain wo con Stat 06/03/21 11:42 CT cervical spine wo con Stat Discontinued Medications Amoxicillin/Clavulanate Potassium (Amoxicillin/Clav 875/125 Mg) 1 tab PO NOW ONE Stop: 06/03/21 12:28 Last Admin: 06/03/21 12:50 Dose: Not Given Documented by: KISHOR Clindamycin HCl (Clindamycin 150 Mg Capsule) 300 mg PO NOW ONE Stop: 06/03/21 12:33 Last Admin: 06/03/21 12:50 Dose: Not Given Documented by: KISHOR Clindamycin HCl (Clindamycin 150 Mg Capsule) 450 mg PO NOW ONE Stop: 06/03/21 12:34 Last Admin: 06/03/21 12:36 Dose: 450 mg Documented by: KISHOR Sodium Chloride (Normal Saline 0.9%) 1,000 mls @ 1,000 mls/hr IV BOLUS ONE Stop: 06/03/21 13:10 Last Infusion: 06/03/21 13:18 Dose: 0 mls/hr Documented by: Admin: 06/03/21 12:17 Dose: 1,000 mls/hr Documented by: KISHOR Thiamine HCl 100 mg/ Sodium (Chloride) 101 mls @ 404 mls/hr IV NOW ONE Stop: 06/03/21 12:25 Last Infusion: 06/03/21 13:18 Dose: 0 mls/hr Documented by: Admin: 06/03/21 12:34 Dose: 404 mls/hr Documented by: KISHOR Lorazepam (Lorazepam 2 Mg/Ml Inj) 1 mg IV NOW ONE Stop: 06/03/21 12:25 Last Admin: 06/03/21 12:33 Dose: 0.5 mg Documented by: KISHOR Vital Signs Vital signs: Vital Signs - 8 hr 06/03/21 11:16 06/03/21 11:22 06/03/21 11:23 Temperature 97.4 F L Pulse Rate 93 H 86 Respiratory Rate 18 18 Blood Pressure 147/102 H 147/102 H Pulse Oximetry 98 06/03/21 11:30 06/03/21 11:51 06/03/21 12:00 Temperature Pulse Rate 86 87 83 Respiratory Rate 15 12 13 Blood Pressure 139/94 H 142/100 H 138/96 H Pulse Oximetry 99 98 06/03/21 12:30 06/03/21 12:41 06/03/21 13:00 Temperature Pulse Rate 102 H 91 H 82 Respiratory Rate 20 24 Blood Pressure 129/79 128/83 Pulse Oximetry 96 98 06/03/21 13:19 06/03/21 13:20 Temperature Pulse Rate 78 79 Respiratory Rate 17 Blood Pressure 131/86 131/86 Pulse Oximetry 98 97 MDM - Fall <Rachael MELISSA AppiahP - Last Filed: 06/03/21 13:55> Lab Data Result diagrams: 06/03/21 11:34 06/03/21 11:34 Labs: Lab Results 06/03/21 06/03/21 Range/Units 11:34 11:34 WBC 4.5 (4.5-11.0) X10^3/uL RBC 5.10 (4.5-5.9) X10^6/uL Hgb 16.7 (13.5-17.5) g/dL Hct 47.6 (41-53) % MCV 93.3 (80-100) fL MCH 32.8 (26-34) PG MCHC 35.2 (30-36) % RDW 13.1 (11.6-14.8) % Plt Count 227 (150-400) X10^3/uL Neut % (Auto) 39.6 L (50-75) % Lymph % (Auto) 47.8 H (25-40) % [place] % (Auto) 11.3 (3-14) % Eos % (Auto) 0.6 L (2-4) % Baso % (Auto) 0.7 (0-2) % Neut # (Auto) 1800 (3466-9193) /uL Lymph # (Auto) 2200 (0660-3294) /uL [place] # (Auto) 500 (0-900) /uL Eos # (Auto) 0 (0-450) /uL Baso # (Auto) 0 (0-100) /uL Sodium 149 H (137-145) mmol/L Potassium 3.8 (3.4-5.1) mmol/L Chloride 105 (98-107) mmol/L Carbon Dioxide 31 (22-32) mmol/L BUN 7 L (9-20) mg/dL Creatinine 0.55 L (0.66-1.25) mg/dL Estimated GFR > 60.0 (>60) mL/min BUN/Creatinine Ratio 12.7 (6-22) Glucose 102 H (70-100) mg/dL Calcium 9.3 (8.4-10.2) mg/dL Phosphorus 3.3 (2.5-4.5) mg/dL Magnesium 2.1 (1.6-2.3) mg/dL Total Bilirubin 0.4 (0.2-1.3) mg/dL AST 38 (17-59) IU/L ALT 17 (<50) IU/L Alkaline Phosphatase 62 (38-126) U/L Total Protein 8.8 H (6.3-8.2) g/dL Albumin 4.7 (3.5-5.0) g/dL Globulin 4.1 (1.7-4.1) g/dL Albumin/Globulin Ratio 1.1 (1.0-2.8) Imaging Data CT - cervical spine: Radiologist's Impression: PROCEDURE:? CT CERVICAL SPINE WO CON ? INDICATIONS:? Fall and intoxicated ? TECHNIQUE:? Noncontrast 3 mm thick sections acquired from the skull base to the T4 level.? Sagittal and coronal reformats were then constructed.? For radiation dose reduction, the following was used:? automated exposure control, adjustment of mA and/or kV according to patient size.? ? COMPARISON:? CR, CERVICAL SPINE 2 OR 3 VIEWS, 03/11/2017, 15:49.? [facility], CT, CT HEAD/BRAIN WO CON, 06/03/2021, 11:45. ? FINDINGS:? Image quality:? Excellent.? ? Bones:? No fractures or dislocations.? Fusion of C4-C5.? Degenerative disc and facet disease in cervical spine.? Visualized superior ribs are intact.? ? Soft tissues:? Prevertebral soft tissues are normal in thickness.? No paravertebral hematomas.? No apical pneumothoraces.? ? ? IMPRESSION:? No fracture in cervical spine. ? ? ? Dictated by: Katelyn Medina M.D. on 06/03/2021 at 12:04 ? ? Approved by: Katelyn Medina M.D. on 06/03/2021 at 12:15 ? CT scan - head: Radiologist's Impression: PROCEDURE:? CT HEAD/BRAIN WO CON ? INDICATIONS:? Fall and intoxicated ? TECHNIQUE:? Noncontrast 4.5 mm thick angled axial sections acquired from the foramen magnum to the vertex, with coronal and sagittal reformats.? For radiation dose reduction, the following was used:? automated exposure control, adjustment of mA and/or kV according to patient size.? ? COMPARISON:? None. ? FINDINGS:? Image quality:? Excellent.? ? CSF spaces:? Basal cisterns are patent.? No extra-axial fluid collections.? Ventricles are normal in size and shape.? ? Brain:? No midline shift.? No intracranial masses or hemorrhage.? Mcqueen-white matter interface is normal.? ? Skull and face:? Calvarium and visualized facial bones are intact, without suspicious lesions.? ? Sinuses:? Visualized sinuses and mastoids are clear.? ? IMPRESSION:? No acute intracranial hemorrhage is seen.? ? No acute intracranial process is seen.? ? ? Dictated by: Robby Caldera M.D. on 06/03/2021 at 10:55 ? ? Approved by: Robby Caldera M.D. on 06/03/2021 at 10:55 ? [facility] Narrative Medical decision making narrative: 45-year-old male with history of alcohol use disorder presents to the emergency department after a ground level fall into a cabinet with a less than 1 minute episode of LOC in by ambulance accompanied by his partner. Patient and his partner and source that patient has been drinking more than 1 bottle of wine each day for the last 6 days, last drink was last evening. Patient has a h istory of alcohol withdrawal in the past, and denies ever having a seizure. He endorses having medications in the past in the emergency department to help with his symptoms. Initially patient was tachycardic, A&O times self, location, but not time. He had tremors and tongue fasciculations. He was given 0.5 mg of Ativan in the emergency department 1 L of normal saline, lab work did not reveal any gross electrolyte abnormalities. Patient was counseled on safe alcohol consumption. He denied wanting to talk to social work and he denies any intention of quitting at this time. He stated that he wants to go home. CT of his head and C-spine were negative for acute fracture or abnormality. Patient did not have any range of motion deficits. His mentation improved after IV hydration for presumed dehydration. Patient did not have any nausea or vomiting. He was able to ambulate steadily. EKG shows normal sinus rhythm without any ectopy, ST changes, or QT prolongation. Patient endorses a long history of dental infection, he has erythematous gingiva and obvious infection. Patient was given clindamycin emergency department any tolerated this without any adverse reaction. He was prescribed chlorhexidine oral rinse, encouraged to have close follow-up with the dentist for removal of his teeth and a 7 day course of clindamycin. He was encouraged to reduce the amount of alcohol that he drinks, to seek mental health care, he was given resources for [facility] and [facility]. Patient is appropriate and amenable to discharge home. Vital signs are stable on repeat examination is unremarkable. Patient has been informed of results. Patient has been given strict return to ER precautions for any new or worsening symptoms. Patient understands to follow up closely with outpatient providers as instructed. Patient understands plan and agrees to discharge home. All questions and concerns answered at this time. <Jose Rafael Anthony, DO - Last Filed: 06/03/21 15:52> Lab Data Labs: Lab Results 06/03/21 06/03/21 Range/Units 11:34 11:34 WBC 4.5 (4.5-11.0) X10^3/uL RBC 5.10 (4.5-5.9) X10^6/uL Hgb 16.7 (13.5-17.5) g/dL Hct 47.6 (41-53) % MCV 93.3 (80-100) fL MCH 32.8 (26-34) PG MCHC 35.2 (30-36) % RDW 13.1 (11.6-14.8) % Plt Count 227 (150-400) X10^3/uL Neut % (Auto) 39.6 L (50-75) % Lymph % (Auto) 47.8 H (25-40) % [place] % (Auto) 11.3 (3-14) % Eos % (Auto) 0.6 L (2-4) % Baso % (Auto) 0.7 (0-2) % Neut # (Auto) 1800 (7431-6017) /uL Lymph # (Auto) 2200 (8241-5798) /uL [place] # (Auto) 500 (0-900) /uL Eos # (Auto) 0 (0-450) /uL Baso # (Auto) 0 (0-100) /uL Sodium 149 H (137-145) mmol/L Potassium 3.8 (3.4-5.1) mmol/L Chloride 105 (98-107) mmol/L Carbon Dioxide 31 (22-32) mmol/L BUN 7 L (9-20) mg/dL Creatinine 0.55 L (0.66-1.25) mg/dL Estimated GFR > 60.0 (>60) mL/min BUN/Creatinine Ratio 12.7 (6-22) Glucose 102 H (70-100) mg/dL Calcium 9.3 (8.4-10.2) mg/dL Phosphorus 3.3 (2.5-4.5) mg/dL Magnesium 2.1 (1.6-2.3) mg/dL Total Bilirubin 0.4 (0.2-1.3) mg/dL AST 38 (17-59) IU/L ALT 17 (<50) IU/L Alkaline Phosphatase 62 (38-126) U/L Total Protein 8.8 H (6.3-8.2) g/dL Albumin 4.7 (3.5-5.0) g/dL Globulin 4.1 (1.7-4.1) g/dL Albumin/Globulin Ratio 1.1 (1.0-2.8) Discharge Plan Departure Patient Disposition: Home Clinical Impression: Alcohol use disorder, Fall from ground level, Gingival disease Instructions: Gingivitis, Alcohol Use Disorder, How to Prevent Falls Activity Restrictions/Additional Instructions: *You have been diagnosed with a periodontal infection, likely chronic in nature. Please follow-up with your dentist as soon as possible. Do not drink heavily on this medication. Please ensure you are drinking plenty of electrolyte fluids and eating foods with protein. I hope that you start getting better soon. Please have your teeth addressed as soon as possible. You can check with the [facility] as well. *What to do: *Please continue to take your regular medications as directed. [x ] New medication prescriptions sent to your pharmacy: [[facility]] [ ] New medication written as a paper prescription [ ] No new medications given *Please follow up with your primary care provider in 2-3 days, call for an appointment. Let them know you were seen in the Emergency Department and that we asked that you be seen for follow-up. We will electronically transmit a record of today's note if your PCP is in our system *If you do not have a primary care provider please contact [phone] to establish care with one of the [facility] primary care providers. *Return to Emergency Department if you should have any new, worsening or concerning symptoms, such as [fever greater than 101F, chills, worsening pain, persistent vomiting or other bothersome symptoms] Prescriptions: New clindamycin HCl 150 mg capsule 450 mg PO Q8H 7 Days Qty: 63 0RF chlorhexidine gluconate 0.12 % mouthwash 15 ml buccal DAILY Qty: 118 0RF No Action Fexofenadine Hydrochloride (Melissa) 0 mg PO * [place] DOSE/FREQUENCY Qty: 0 0RF atorvastatin 80 mg tablet 80 mg PO BEDTIME Qty: 90 0RF albuterol sulfate [Proventil HFA] 90 mcg/actuation HFA aerosol inhaler 2 puff inhalation SEE INSTRUCTIONS PRN (Reason: shortness of breath or wheezing) Qty: 1 3RF triamcinolone acetonide [Nasacort] 55 mcg aerosol,spray 1 spray intranasal DAILY 0RF Rx Instructions: administer into each nostril Referrals: [facility] [Provider Group] Ibrahima Kahn DDS [Non-Staff] - Erin Edwards DO [Primary Care Provider] - <Jose Rafael Anthony DO - Last Filed: 06/03/21 15:52> Cosign ED Attending Cosignature Attestation: Dr Anthony Co-Sign Statement: I was available for consultation during this patient's emergency department visit. This chart is signed by myself for administrative purposes only. I did not have direct contact with this patient during this visit. They were seen independently by the APC.
[2021-06-03] MEDS: SODIUM CHLORIDE 0.9% 1,000 ML 1000 ML IV (12:17)
[2021-06-03 12:25] LABS: Add Manual Diff / Slide Review NO; Basophils Absolute Auto 0 /uL (0-100); Basophils Percent Auto 0.7 % (0-2); Eosinophils Absolute Auto 0 /uL (0-450); Eosinophils Percent Auto 0.6 % (2-4); Hematocrit 47.6 % (41-53); Hemoglobin 16.7 g/dL (13.5-17.5); Lymphocytes Absolute Auto 2200 /uL (1100-4500); Lymphocytes Percent Auto 47.8 % (25-40); Mean Corpuscular HGB Conc 35.2 % (30-36); Mean Corpuscular Hemoglobin 32.8 PG (26-34); Mean Corpuscular Volume 93.3 fL (80-100); Monocytes Absolute Auto 500 /uL (0-900); Monocytes Percent Auto 11.3 % (3-14); Neutrophils Absolute Auto 1800 /uL (1500-7000); Neutrophils Percent Auto 39.6 % (50-75); Platelet Count 227 X10^3/uL (150-400); Red Cell Distribution Width 13.1 % (11.6-14.8); White Blood Cell Count 4.5 X10^3/uL (4.5-11.0)
[2021-06-03 12:31] LABS: Alanine Aminotransferase 17 IU/L (<50); Albumin 4.7 g/dL (3.5-5.0); Albumin Globulin Ratio 1.1 (1.0-2.8); Alkaline Phosphatase 62 U/L (38-126); Aspartate Aminotransferase 38 IU/L (17-59); BUN Creatinine Ratio 12.7 (6-22); Bilirubin Total 0.4 mg/dL (0.2-1.3); Blood Urea Nitrogen 7 mg/dL (9-20); Calcium 9.3 mg/dL (8.4-10.2); Carbon Dioxide 31 mmol/L (22-32); Chloride 105 mmol/L (98-107); Estimated Glomerular Filt Rate > 60.0 mL/min (>60); Globulin 4.1 g/dL (1.7-4.1); Glucose 102 mg/dL (70-100); HEMOLYSIS < 15 (0-50); Magnesium 2.1 mg/dL (1.6-2.3); Phosphorous 3.3 mg/dL (2.5-4.5); Potassium 3.8 mmol/L (3.4-5.1); Sodium 149 mmol/L (137-145); Total Protein 8.8 g/dL (6.3-8.2)
[2021-06-03] MEDS: LORazepam 2 MG/ML INJ 1 MG IV (12:33)
[2021-06-03] MEDS: THIAMINE 100 MG in SODIUM CHLORIDE 0.9% 100 ML 404 ML IV (12:34)
[2021-06-03] MEDS: CLINDAMYCIN 150 MG CAPSULE 450 MG PO (12:36)
== END 2021-06-03 13:20 | disposition home or self-care (01) ==
PROVIDERS: Emergency Provider Nurse Practitioner Critical Care Medicine; PCP Family Medicine
DX: F10.10 Alcohol abuse, uncomplicated (principal); K06.9 Disorder of gingiva and edentulous alveolar ridge, unspecified; W18.30XA Fall on same level, unspecified, initial encounter
CPT/HCPCS: 36415; 70450; 72125; 80053; 83735; 84100; 85025; 93005; 96365; 96375; 99284; J2060

== ENCOUNTER 2023-05-01 00:15 | Emergency (ER) | payer OTHER, MEDICAID, SELFPAY ==
[2023-05-01] VITALS (7 sets, daily range): BP systolic 138–160; BP diastolic 88–106; PULSE 79–98; RESP 18–20; TEMP 36.8; O2SAT 98–99; BMI 21.5
--- NOTE | 2023-05-01 00:49 | DI.CT.S_ITS ---
PROCEDURE: CT HEAD/BRAIN WO CON INDICATIONS: AMS/CONFUSION/SLURRED SPEECH X1 WK TECHNIQUE: Noncontrast 4.5 mm thick angled axial sections acquired from the foramen magnum to the vertex, with coronal and sagittal reformats. For radiation dose reduction, the following was used: automated exposure control, adjustment of mA and/or kV according to patient size. COMPARISON: [facility], CT, CT HEAD/BRAIN WO CON, 06/03/2021, 11:45. FINDINGS: Image quality: Diagnostic. CSF spaces: Basal cisterns are patent. No extra-axial fluid collections. Ventricles are normal in size and shape. Brain: No midline shift. No intracranial masses or hemorrhage. Mcqueen-white matter interface is normal. Skull and face: Calvarium and visualized facial bones are intact, without suspicious lesions. Sinuses: Visualized sinuses and mastoids are clear. IMPRESSION: No acute intracranial pathology. Dictated by: Adrien Alexander M.D. on 05/01/2023 at 1:27 Approved by: Adrien Alexander M.D. on 05/01/2023 at 1:28
--- NOTE | 2023-05-01 00:49 | DI.RAD.S_ITS ---
PROCEDURE: XR CHEST 1V INDICATIONS: AMS TECHNIQUE: One view of the chest was acquired. COMPARISON: None. FINDINGS: Surgical changes and devices: None. A foreign body lies over the upper mediastinum, having an appearance of some form of jewel. Lungs and pleura: Lungs are clear. No pleural effusions or pneumothorax. Mediastinum: Mediastinal contours appear normal. Heart size is normal. Bones and chest wall: No suspicious bony lesions. Overlying soft tissues appear unremarkable. IMPRESSION: No acute cardiopulmonary abnormality is seen. Dictated by: Adrien Alexander M.D. on 05/01/2023 at 1:06 Approved by: Adrien Alexander M.D. on 05/01/2023 at 1:08
--- NOTE | 2023-05-01 00:50 | ED_ITS ---
HPI - Altered Mental Status General Chief Complaint: Upper Respiratory Symptoms Stated Complaint: has covid confusion, blurry vision Time Seen by Provider: 05/01/23 00:26 Source: patient and other Mode of arrival: Ambulatory History of Present Illness HPI narrative: 47-year-old male with history of alcohol use disorder presents by private vehicle from home with his for several days of worsening brain fog, fatigue, confusion, intermittent blurry vision. Patient states that he has been taking care of his spouse who had COVID-19 several weeks ago. He states he thinks he caught the virus and has felt overall poorly with brain fog. Tonight he felt worse than usual and decided to come in for evaluation. states that speech seems to be slurred tonight, which is unusual. Patient endorses alcohol use tonight Related Data Home Medications Medication Instructions Recorded Confirmed Fexofenadine Hydrochloride 0 mg PO * DOSE/FREQUENCY ##0 12/01/09 12/08/20 (Melissa) triamcinolone acetonide 55 mcg 1 spray intranasal DAILY 12/08/20 12/08/20 nasal spray aerosol (Nasacort) albuterol sulfate 05/01/23 Allergies Allergy/AdvReac Type Severity Reaction Status Date / Time No Known Drug Allergies Allergy Verified 05/01/23 00:23 Review of Systems Review of Systems Narrative: Negative except as noted above Patient History Medical History Impaired fasting glucose Left wrist pain Hepatic steatosis Hypertension Hyperlipidemia Incidental pulmonary nodule (10/15/16) Surgical History History of tympanostomy tube placement History of tonsillectomy Status post biopsy (08/29/14) Family History Mother Fatty liver Social History Smoking Status: Never smoker Smoking Status: Never smoker alcohol intake frequency: 3 or more drinks per day Substance Use Type: does not use Exam Initial Vital Signs Initial Vital Signs: Vital Signs Temperature 98.2 F 05/01/23 00:24 Pulse Rate 98 H 05/01/23 00:24 Respiratory Rate 20 05/01/23 00:24 Blood Pressure 160/106 H 05/01/23 00:24 Pulse Oximetry 98 05/01/23 00:24 Oxygen Delivery Method Room Air 05/01/23 00:24 Const: Awake, alert, no acute distress, nontoxic appearing Eyes: PERRL, EOMI, conjunctiva normal ENT: Atraumatic, dentition normal, mucous membranes moist Cardiac: regular rate, regular rhythm RESP: unlabored, clear bilaterally, no wheezing GI: Atraumatic, soft, nontender, nondistended, no rebound, no guarding MSK: Atraumatic, full range of motion, pulses equal Skin: Warm, Dry, intact, no rashes Neuro: AO x3, CN II-XII grossly intact, speech slurred Course Orders Ordered: ED Orders 05/01/23 00:35 Covid-19 + FLU A/B + RSV - PCR Stat 05/01/23 00:49 CT head/brain wo con Stat Chest [XR chest 1V] Stat EKG-12 Lead Stat 05/01/23 01:05 Ammonia (NH3) Stat CBC Auto Diff [Complete Blood Count AUTO DIFF] Stat CMP [Comprehensive Metabolic Panel] Stat Ethanol (ETOH) Stat MAG [Magnesium] Stat 05/01/23 02:20 UA Complete [Urinalysis and Microscopic] Stat Urine Drug Screen, Rapid Stat Discontinued Medications Folic Acid (Folic Acid 1 Mg Tablet) 1 mg PO NOW ONE Stop: 05/01/23 00:50 Last Admin: 05/01/23 01:26 Dose: 1 mg Documented By: Sodium Chloride (Normal Saline 0.9%) 1,000 mls @ 1,000 mls/hr IV BOLUS ONE Stop: 05/01/23 01:47 Last Infusion: 05/01/23 02:10 Dose: Infused Documented By: Admin: 05/01/23 01:24 Dose: 1,000 mls/hr Documented By: Thiamine HCl 200 mg/ Sodium (Chloride) 102 mls @ 408 mls/hr IV NOW ONE Stop: 05/01/23 00:50 Last Infusion: 05/01/23 01:45 Dose: Infused Documented By: Admin: 05/01/23 01:26 Dose: 408 mls/hr Documented By: Vital Signs Vital signs: Vital Signs - 8 hr 05/01/23 00:24 05/01/23 00:28 05/01/23 00:28 Temperature 98.2 F Pulse Rate 98 H 96 H Respiratory Rate 20 Blood Pressure 160/106 H 160/106 H Pulse Oximetry 98 98 Oxygen Delivery Method Room Air 05/01/23 00:30 05/01/23 00:30 05/01/23 01:00 Temperature Pulse Rate 94 H 98 H Respiratory Rate Blood Pressure 150/103 H Pulse Oximetry 98 98 Oxygen Delivery Method 05/01/23 01:00 05/01/23 01:30 05/01/23 01:30 Temperature Pulse Rate 98 H Respiratory Rate Blood Pressure 153/101 H 156/88 H Pulse Oximetry 98 Oxygen Delivery Method 05/01/23 02:00 05/01/23 02:00 05/01/23 03:03 Temperature Pulse Rate 79 95 H Respiratory Rate 18 18 Blood Pressure 138/97 H 148/100 H Pulse Oximetry 99 98 Oxygen Delivery Method Room Air MDM - Altered Mental Status Differential Diagnosis Differential diagnosis: Likely alcoholic intoxication, altered mental status and delirium Lab Data 05/01/23 01:05 05/01/23 01:05 Labs: Lab Results 05/01/23 05/01/23 05/01/23 Range/Units 00:35 01:05 02:20 WBC 3.6 L (4.5-11.0) X10^3/uL RBC 5.00 (4.5-5.9) X10^6/uL Hgb 16.4 (13.5-17.5) g/dL Hct 47.6 (41-53) % MCV 95.3 (80-100) fL MCH 32.7 (26-34) PG MCHC 34.4 (30-36) % RDW 18.2 H (11.6-14.8) % Plt Count 328 (150-400) X10^3/uL Neut % (Auto) 34.7 L (50-75) % Lymph % (Auto) 58.5 H (25-40) % [place] % (Auto) 5.3 (3-14) % Eos % (Auto) 0.7 L (2-4) % Baso % (Auto) 0.8 (0-2) % Neut # (Auto) 1200 L (7047-0722) /uL Lymph # (Auto) 2100 (2056-2055) /uL [place] # (Auto) 200 (0-900) /uL Eos # (Auto) 0 (0-450) /uL Baso # (Auto) 0 (0-100) /uL Sodium 149 H (137-145) mmol/L Potassium 4.2 (3.4-5.1) mmol/L Chloride 107 (98-107) mmol/L Carbon Dioxide 29 (22-32) mmol/L BUN 6 L (9-20) mg/dL Creatinine 0.69 (0.66-1.25) mg/dL Estimated GFR > 60 (>60) mL/min BUN/Creatinine Ratio 8.7 (6-22) Glucose 107 H (70-100) mg/dL Calcium 9.1 (8.4-10.2) mg/dL Magnesium 1.9 (1.6-2.3) mg/dL Total Bilirubin 0.5 (0.2-1.3) mg/dL AST 35 (17-59) IU/L ALT 22 (<50) IU/L Alkaline Phosphatase 67 (38-126) U/L Ammonia 15 (9-30) umol/L Total Protein 8.6 H (6.3-8.2) g/dL Albumin 4.6 (3.5-5.0) g/dL Globulin 4.0 (1.7-4.1) g/dL Albumin/Globulin Ratio 1.2 (1.0-2.8) Urine Color Yellow Urine Appearance Clear Urine pH 5.0 (4.5-8.0) Ur Specific [place] 1.015 (1.000-1.035) Urine Protein Negative (Negative) Urine Glucose (UA) Negative (Negative) g/dL Urine Ketones Negative (NEGATIVE) Urine Occult Blood Negative (Negative) Urine Nitrate Negative (Negative) Urine Bilirubin Negative (NEGATIVE) Urine Urobilinogen 0.2 (0.2) E.U./dL Ur Leukocyte Esterase Negative (NEGATIVE) Urine RBC None seen (0-5/HPF) Urine WBC None seen (0-5/HPF) Ur Squamous Epith Cells 0-1 /hpf (0-5/HPF) Urine Bacteria None seen (None) Ur Culture Indicated? Cult not indicated Vol Urine Centrifuged 10ml (spun) U Opiates 300ng/mL cut Negative (Negative) Ur Oxycodone Screen Negative (Negative) Urine Methadone Screen Negative (Negative) Ur Barbiturates Screen Negative (Negative) U Tricyclic Antidepress Negative (Negative) Ur Phencyclidine Scrn Negative (Negative) Ur Amphetamines Screen Negative (Negative) U Methamphetamines Scrn Negative (Negative) Ur MDMA Scrn (Ecstasy) Negative (Negative) U Benzodiazepines Scrn Positive H (Negative) Urine Cocaine Screen Negative (Negative) U Marijuana (THC) Screen Negative (Negative) Urine Specific [place] (Normal) Ethyl Alcohol 330 H ( - 10) mg/dL Ur Creatinine (Normal) SARS-CoV-2 (PCR) Positive H (Negative) Influenza A (RT-PCR) Flu a negative (NEGATIVE) Influenza B (RT-PCR) Flu b negative (NEGATIVE) RSV (PCR) Negative (Negative) 05/01/23 Range/Units 02:20 WBC (4.5-11.0) X10^3/uL RBC (4.5-5.9) X10^6/uL Hgb (13.5-17.5) g/dL Hct (41-53) % MCV (80-100) fL MCH (26-34) PG MCHC (30-36) % RDW (11.6-14.8) % Plt Count (150-400) X10^3/uL Neut % (Auto) (50-75) % Lymph % (Auto) (25-40) % [place] % (Auto) (3-14) % Eos % (Auto) (2-4) % Baso % (Auto) (0-2) % Neut # (Auto) (9482-6976) /uL Lymph # (Auto) (6304-2354) /uL [place] # (Auto) (0-900) /uL Eos # (Auto) (0-450) /uL Baso # (Auto) (0-100) /uL Sodium (137-145) mmol/L Potassium (3.4-5.1) mmol/L Chloride (98-107) mmol/L Carbon Dioxide (22-32) mmol/L BUN (9-20) mg/dL Creatinine (0.66-1.25) mg/dL Estimated GFR (>60) mL/min BUN/Creatinine Ratio (6-22) Glucose (70-100) mg/dL Calcium (8.4-10.2) mg/dL Magnesium (1.6-2.3) mg/dL Total Bilirubin (0.2-1.3) mg/dL AST (17-59) IU/L ALT (<50) IU/L Alkaline Phosphatase (38-126) U/L Ammonia (9-30) umol/L Total Protein (6.3-8.2) g/dL Albumin (3.5-5.0) g/dL Globulin (1.7-4.1) g/dL Albumin/Globulin Ratio (1.0-2.8) Urine Color Urine Appearance Urine pH Normal (4.5-8.0) Ur Specific [place] (1.000-1.035) Urine Protein (Negative) Urine Glucose (UA) (Negative) g/dL Urine Ketones (NEGATIVE) Urine Occult Blood (Negative) Urine Nitrate (Negative) Urine Bilirubin (NEGATIVE) Urine Urobilinogen (0.2) E.U./dL Ur Leukocyte Esterase (NEGATIVE) Urine RBC (0-5/HPF) Urine WBC (0-5/HPF) Ur Squamous Epith Cells (0-5/HPF) Urine Bacteria (None) Ur Culture Indicated? Vol Urine Centrifuged U Opiates 300ng/mL cut (Negative) Ur Oxycodone Screen (Negative) Urine Methadone Screen (Negative) Ur Barbiturates Screen (Negative) U Tricyclic Antidepress (Negative) Ur Phencyclidine Scrn (Negative) Ur Amphetamines Screen (Negative) U Methamphetamines Scrn (Negative) Ur MDMA Scrn (Ecstasy) (Negative) U Benzodiazepines Scrn (Negative) Urine Cocaine Screen (Negative) U Marijuana (THC) Screen (Negative) Urine Specific [place] Normal (Normal) Ethyl Alcohol ( - 10) mg/dL Ur Creatinine Normal (Normal) SARS-CoV-2 (PCR) (Negative) Influenza A (RT-PCR) (NEGATIVE) Influenza B (RT-PCR) (NEGATIVE) RSV (PCR) (Negative) Treatment and disposition Social Determinants of Health that impact treatment or disposition: Alcohol use disorder MDM Narrative Medical decision making narrative: Brain fog and confusion following COVID-19 infection. Patient does have slurred speech on evaluation, endorses drinking several glasses of wine this evening. No other deficits noted on exam. We will give thiamine, folic acid, IV fluids. Laboratory work is reviewed, mild leukopenia, normal hemoglobin. Sodium 149, creatinine 0.69. Patient's alcohol level 330, urine tox positive for benzodiazepines, which patient does not have prescribed to him. CT of the brain shows no acute pathology, chest x-ray negative for acute findings. Patient tested positive for COVID-19. Lab and imaging findings discussed with patient and spouse at bedside. I discussed patient's alcohol use with him and recommended that he decrease his alcohol intake as this may worsen brain fog and make his COVID-19 feel even worse. I also notified the patient of his urine testing positive for benzodiazepines, patient denies taking any benzodiazepines this evening, and denies owning a benzodiazepine prescription. Patient advised to follow with primary care physician, and again recommended decreasing alcohol intake. Patient discharged home to the care of his in stable condition. Discharge Plan Departure Patient Disposition: Home Clinical Impression: COVID, Brain fog, Alcohol intoxication Instructions: COVID-19 Activity Restrictions/Additional Instructions: I highly recommend reestablishing with a primary care doctor. Please make steps to decrease her alcohol intake as this is going to worsen your brain fog and fatigue symptoms. Prescriptions: No Action Fexofenadine Hydrochloride (Melissa) 0 mg PO * [place] DOSE/FREQUENCY Qty: 0 triamcinolone acetonide [Nasacort] 55 mcg aerosol,spray 1 spray intranasal DAILY Rx Instructions: administer into each nostril albuterol sulfate Referrals: Erin Edwards DO [Primary Care Provider] - Stand Alone Forms: Patient Portal/API
[2023-05-01 01:18] LABS: Add Manual Diff / Slide Review NO; Basophils Absolute Auto 0 /uL (0-100); Basophils Percent Auto 0.8 % (0-2); Eosinophils Absolute Auto 0 /uL (0-450); Eosinophils Percent Auto 0.7 % (2-4); Hematocrit 47.6 % (41-53); Hemoglobin 16.4 g/dL (13.5-17.5); Lymphocytes Absolute Auto 2100 /uL (1100-4500); Lymphocytes Percent Auto 58.5 % (25-40); Mean Corpuscular HGB Conc 34.4 % (30-36); Mean Corpuscular Hemoglobin 32.7 PG (26-34); Mean Corpuscular Volume 95.3 fL (80-100); Monocytes Absolute Auto 200 /uL (0-900); Monocytes Percent Auto 5.3 % (3-14); Neutrophils Absolute Auto 1200 /uL (1500-7000); Neutrophils Percent Auto 34.7 % (50-75); Platelet Count 328 X10^3/uL (150-400); Red Cell Distribution Width 18.2 % (11.6-14.8); White Blood Cell Count 3.6 X10^3/uL (4.5-11.0)
[2023-05-01 01:23] LABS: Influenza A - CEPHEID Flu A NEGATIVE (NEGATIVE); Influenza B - CEPHEID Flu B NEGATIVE (NEGATIVE); Respiratory Syncytial Virus Negative (Negative)
[2023-05-01] MEDS: SODIUM CHLORIDE 0.9% 1,000 ML 1000 ML IV (01:24)
[2023-05-01 01:25] LABS: COVID-19 CEPHEID 4-PLEX PCR POSITIVE (Negative)
[2023-05-01 01:25] LABS: Alanine Aminotransferase 22 IU/L (<50); Albumin 4.6 g/dL (3.5-5.0); Albumin Globulin Ratio 1.2 (1.0-2.8); Alkaline Phosphatase 67 U/L (38-126); Ammonia (NH3) 15 umol/L (9-30); Aspartate Aminotransferase 35 IU/L (17-59); BUN Creatinine Ratio 8.7 (6-22); Bilirubin Total 0.5 mg/dL (0.2-1.3); Blood Urea Nitrogen 6 mg/dL (9-20); Calcium 9.1 mg/dL (8.4-10.2); Carbon Dioxide 29 mmol/L (22-32); Chloride 107 mmol/L (98-107); Estimated Glomerular Filt Rate > 60 mL/min (>60); Glucose 107 mg/dL (70-100); HEMOLYSIS < 15 (0-50); Potassium 4.2 mmol/L (3.4-5.1); Sodium 149 mmol/L (137-145); Total Protein 8.6 g/dL (6.3-8.2)
[2023-05-01 01:26] LABS: Magnesium 1.9 mg/dL (1.6-2.3)
[2023-05-01] MEDS: THIAMINE 200 MG in SODIUM CHLORIDE 0.9% 100 ML 408 MG IV (01:26)
[2023-05-01] MEDS: FOLIC ACID 1 MG TABLET PO (01:26)
[2023-05-01 01:35] LABS: Ethanol (ETOH) 330 mg/dL
[2023-05-01 02:28] LABS: Appearance Urine UA CLEAR; Bilirubin Urine UA NEGATIVE (NEGATIVE); Color Urine UA YELLOW; Glucose Urine UA NEGATIVE (Negative); Ketones Urine UA NEGATIVE (NEGATIVE); Leukocyte Esterase Urine UA NEGATIVE (NEGATIVE); Nitrite Urine UA NEGATIVE (Negative); Occult Blood Urine UA NEGATIVE (Negative); Protein Urine UA NEGATIVE (Negative); Specific Gravity Urine UA 1.015 (1.000-1.035); Urobilinogen Urine UA 0.2 E.U./dL (0.2)
[2023-05-01 02:33] LABS: UR Morphine/Opiate cutoff 300 Negative (Negative); Ur Creatinine Normal (Normal); Ur Specific Gravity Normal (Normal); Urine Amphetamines Negative (Negative); Urine Barbiturates Negative (Negative); Urine Cocaine Negative (Negative); Urine MDMA Negative (Negative); Urine Methamphetamines Negative (Negative); Urine Phencyclidine Negative (Negative); Urine Tetrahydrocannabinol Negative (Negative); Urine pH Normal (Normal)
[2023-05-01 02:34] LABS: Urine Benzodiazepines Positive (Negative); Urine Methadone Negative (Negative); Urine Oxycodone Negative (Negative); Urine Tricyclic Antidepressant Negative (Negative)
[2023-05-01 02:38] LABS: Bacteria Urine None Seen; Culture Indicated Urine Cult Not Indicated; RBC Urine None Seen (0-5/HPF); Squamous Epithelial Cell Urine 0-1 /HPF (0-5/HPF); Urine Volume 10mL (spun); WBC Urine None Seen (0-5/HPF)
== END 2023-05-01 03:04 | disposition home or self-care (01) ==
PROVIDERS: Emergency Provider Emergency Medicine; PCP Family Medicine
DX: U07.1 COVID-19 (principal); R41.0 Disorientation, unspecified; F10.129 Alcohol abuse with intoxication, unspecified; Y90.8 Blood alcohol level of 240 mg/100 ml or more
CPT/HCPCS: 0241U; 36415; 70450; 71045; 80053; 80305; 80320; 81001; 82140; 83735; 85025; 96365; 99284